=== PATIENT | female | born 1950 | race Caucasian/White ===

== ENCOUNTER 2016-08-22 13:07 | Inpatient (IN) | payer OTHER ==
[~2016-08-22] VITALS: Ht 165.1 cm; Wt 60.0 kg
[2016-08-22] MEDS ORDERED: LISI-662 PO (13:53)
[2016-08-22] MEDS ORDERED: ASPI-556 PO (13:53)
[2016-08-22] MEDS ORDERED: METO-323 PO (13:53)
[2016-08-22] MEDS ORDERED: METH10 PO (13:53)
[2016-08-22] MEDS ORDERED: ONDANSETRON HCL 4 MG/2 ML VIAL IVP ONE (14:00)
[2016-08-22] MEDS ORDERED: MORPHINE SULFATE 4 MG/ML SYRINGE IVP ONE (14:00)
[2016-08-22] MEDS ORDERED: ONDANSETRON HCL 4 MG/2 ML VIAL IM ONE (15:00)
[2016-08-22] MEDS ORDERED: DIAZEPAM 5 MG TABLET PO ONE (15:00)
[2016-08-22] MEDS ORDERED: MORPHINE SULFATE 4 MG/ML SYRINGE IM ONE (15:00)
[2016-08-22] MEDS ORDERED: HYDROmorphone 2 MG/ML SYRINGE IM ONE (16:45)
[2016-08-22] MEDS ORDERED: HYDROmorphone 2 MG/ML SYRINGE IVP ONE (16:45)
[2016-08-22] MEDS ORDERED: MIDAZOLAM HCL 2 MG/2 ML VIAL IM ONE (18:00)
[2016-08-22 18:09] LABS: HEMATOCRIT 41.9 % (36-46); HEMOGLOBIN 13.4 g/dL (12.0-16.0); MEAN CORPUSCULAR HEMOGLOBIN 26.8 pg (26.0-34.0); MEAN CORPUSCULAR VOLUME 84 fL (80-100); PLATELET COUNT (AUTO) 372 K/uL (150-450); RED BLOOD CELL COUNT(AUTO) 4.99 MIL/uL (4.00-5.20); WHITE BLOOD COUNT (AUTO) 28.9 K/uL (4.5-11.0)
[2016-08-22 18:51] LABS: CREATININE 1.97 mg/dL (0.60-1.30); POTASSIUM 4.1 mmol/L (3.5-5.1)
[2016-08-22 18:57] LABS: ALBUMIN 2.9 g/dL (3.4-5.0); BILIRUBIN,TOTAL 1.2 mg/dL (0.1-1.0); TOTAL PROTEIN, SERUM 8.1 g/dL (6.4-8.2)
[2016-08-22 19:03] LABS: BAND NEUTROPHILS % (MANUAL) 62 % (1-5); LYMPHOCYTES % (MANUAL) 5 % (22-44); METAMYELOCYTES % 2 % (0-0); TOTAL CELLS COUNTED 100
[2016-08-22] MEDS ORDERED: SODIUM CHLORIDE 0.9% 500 ML IV ONE (19:45)
[2016-08-22] MEDS ORDERED: CEFTAROLINE 600 MG/D5W 250 ML IV ONE (20:00)
[2016-08-22] MEDS ORDERED: ONDANSETRON HCL 4 MG/2 ML VIAL IVP PRN (20:45)
[2016-08-22] MEDS ORDERED: BISACODYL 10 MG RECTAL RECTAL SUPPOSITORY PR PRN (20:45)
[2016-08-22] MEDS ORDERED: ACETAMINOPHEN 325 MG TABLET PO PRN (20:45)
[2016-08-22] MEDS ORDERED: ALBUTEROL SULFATE 2.5 MG/0.5 ML NEB SOLUTION NEB PRN (20:45)
[2016-08-22 20:57] LABS: APPEARANCE,URINE CLOUDY (CLEAR); GLUCOSE, URINE (UA) NEGATIVE (NEGATIVE); KETONES,URINE 15 mg/dL (NEGATIVE); LEUKOCYTE ESTERASE ,URINE SMALL (NEGATIVE); OCCULT BLOOD,URINE NEGATIVE (NEGATIVE); PROTEIN,URINE TRACE (NEGATIVE)
[2016-08-22] MEDS: DOCUSATE SODIUM 100 MG CAPSULE PO SCH ×2 (21:00→23:20)
[2016-08-22 21:03] LABS: SQUAMOUS EPITHELIAL CELL,UR Moderate /LPF (None Seen)
[2016-08-22] MEDS: MORPHINE SULFATE 2 MG/ML SYRINGE IVP PRN (21:03)
[2016-08-22 21:05] LABS: CALCIUM OXALATE CRYSTALS,UR Few /LPF (None Seen)
[2016-08-22 22:02] VITALS: BP 146/78
[2016-08-22] MEDS ORDERED: VANCOMYCIN HCL 1.25 GM in DEXTROSE 5%-WATER 250 ML IV ONE (22:15)
[2016-08-22] MEDS: HEPARIN SODIUM,PORCINE 5,000 UNITS/ML VIAL SQ SCH ×2 (22:59→23:17)
[2016-08-22] MEDS: OxyCODONE HCL/ACETAMINOPHEN 5-325 MG TABLET PO PRN (23:02)
[2016-08-22 23:58] VITALS: BP 142/81
[2016-08-23] MEDS: SODIUM CHLORIDE 0.9% 1,000 ML IV SCH ×3 (01:33→20:23)
[2016-08-23] MEDS: PIPERACILLIN SODIUM/TAZOBACTAM 2.25 GM in DEXTROSE 5%-WATER 50 ML IV SCH ×5 (01:33→23:59)
[2016-08-23] MEDS: MORPHINE SULFATE 2 MG/ML SYRINGE IVP PRN ×3 (01:47→10:17)
[2016-08-23 04:44] VITALS: BP 126/58
[2016-08-23] MEDS: OxyCODONE HCL/ACETAMINOPHEN 5-325 MG TABLET PO PRN ×3 (06:06→21:47)
[2016-08-23] MEDS ORDERED: PNEUMOCOCCAL VACCINE POLYVALENT 0.5 ML VIAL [PPSV23] IM ONE (06:30)
[2016-08-23 07:39] LABS: ORIG DRAW (USER) MSIMS
[2016-08-23 07:43] LABS: CALCIUM, TOTAL 8.4 mg/dL (8.8-10.5); CREATININE 1.74 mg/dL (0.60-1.30); POTASSIUM 4.2 mmol/L (3.5-5.1)
[2016-08-23] MEDS ORDERED: VANCOMYCIN HCL 1 GM/D5% WATER 200 ML IV SCH (08:00)
[2016-08-23 08:10] LABS: BASOPHILS % (AUTO) 0.1 % (0.0-2.0); EOSINOPHILS % (AUTO) 0.2 % (1.0-6.0); HEMATOCRIT 37.7 % (36-46); HEMOGLOBIN 12.1 g/dL (12.0-16.0); LYMPHOCYTES % (AUTO) 5.4 % (22.0-44.0); MEAN CORPUSCULAR VOLUME 84 fL (80-100); MONOCYTES # (AUTO) 0.7 K/uL (0.1-1.0); MONOCYTES % (AUTO) 3.6 % (2.0-9.0); NEUTROPHILS # (AUTO) 16.3 K/uL (1.8-7.7); RED BLOOD CELL COUNT(AUTO) 4.47 MIL/uL (4.00-5.20); RED CELL DISTRIBUTION WIDTH 15.8 % (11.5-14.5)
[2016-08-23 08:11] VITALS: BP 138/70
[2016-08-23 08:14] LABS: NEUTROPHILS % (AUTO) 90.7 % (40.0-70.0)
[2016-08-23 08:15] LABS: PLATELET COUNT (AUTO) 251 K/uL (150-450)
[2016-08-23] MEDS: VANCOMYCIN HCL 750 MG in DEXTROSE 5%-WATER 150 ML IV SCH (08:24)
[2016-08-23] MEDS: PANTOPRAZOLE SODIUM 40 MG DR TABLET PO SCH (08:33)
[2016-08-23] MEDS: DOCUSATE SODIUM 100 MG CAPSULE PO SCH ×2 (08:33→20:21)
[2016-08-23] MEDS: HEPARIN SODIUM,PORCINE 5,000 UNITS/ML VIAL SQ SCH ×2 (08:34→20:20)
[2016-08-23 11:38] VITALS: BP 145/75
[2016-08-23 15:40] VITALS: BP 161/82
[2016-08-23] MEDS: METHADONE HCL 10 MG TABLET PO SCH (15:49)
[2016-08-23 19:58] VITALS: BP 199/97
[2016-08-23] MEDS: HYDROmorphone 2 MG/ML SYRINGE IVP PRN (20:20)
[2016-08-24] MEDS: HYDROmorphone 2 MG/ML SYRINGE IVP PRN ×4 (04:27→17:48)
[2016-08-24 04:50] VITALS: BP 168/67
[2016-08-24] MEDS: PIPERACILLIN SODIUM/TAZOBACTAM 2.25 GM in DEXTROSE 5%-WATER 50 ML IV SCH (06:57)
[2016-08-24 07:41] VITALS: BP 137/94
[2016-08-24 07:41] LABS: CALCIUM, TOTAL 8.5 mg/dL (8.8-10.5); CREATININE 1.03 mg/dL (0.60-1.30); POTASSIUM 3.6 mmol/L (3.5-5.1)
[2016-08-24] MEDS: PANTOPRAZOLE SODIUM 40 MG DR TABLET PO SCH (08:17)
[2016-08-24] MEDS: HEPARIN SODIUM,PORCINE 5,000 UNITS/ML VIAL SQ SCH ×2 (08:17→20:57)
[2016-08-24] MEDS: METHADONE HCL 10 MG TABLET PO SCH (08:17)
[2016-08-24] MEDS: DOCUSATE SODIUM 100 MG CAPSULE PO SCH ×2 (08:17→20:57)
[2016-08-24] MEDS: MORPHINE SULFATE 2 MG/ML SYRINGE IVP PRN ×2 (08:25→20:57)
[2016-08-24] MEDS: VANCOMYCIN HCL 750 MG in DEXTROSE 5%-WATER 150 ML IV SCH ×3 (08:26→20:57)
[2016-08-24 11:49] VITALS: BP 168/91
[2016-08-24] MEDS: PIPERACILLIN/TAZO 3.375 GM/D5W 50 ML IV SCH ×3 (13:38→23:26)
[2016-08-24] MEDS: SODIUM CHLORIDE 0.9% 1,000 ML IV SCH (13:40)
[2016-08-24 15:19] VITALS: BP 142/101
[2016-08-24 17:48] VITALS: BP 139/94
[2016-08-24 19:54] VITALS: BP 166/99
[2016-08-24] MEDS: OxyCODONE HCL/ACETAMINOPHEN 5-325 MG TABLET PO PRN (23:29)
[2016-08-25] VITALS (7 sets, daily range): BP systolic 149–186; BP diastolic 94–110
[2016-08-25] MEDS: LISINOPRIL 20 MG TABLET PO SCH ×2 (01:04→08:32)
[2016-08-25] MEDS: METOPROLOL SUCCINATE 25 MG ER TABLET PO SCH ×3 (01:04→20:13)
[2016-08-25] MEDS: MORPHINE SULFATE 2 MG/ML SYRINGE IVP PRN ×3 (03:14→20:18)
[2016-08-25] MEDS: SODIUM CHLORIDE 0.9% 1,000 ML IV SCH ×2 (05:59→21:26)
[2016-08-25] MEDS: PIPERACILLIN/TAZO 3.375 GM/D5W 50 ML IV SCH ×2 (05:59→12:43)
[2016-08-25] MEDS: METHADONE HCL 10 MG TABLET PO SCH (08:18)
[2016-08-25] MEDS: HYDROmorphone 2 MG/ML SYRINGE IVP PRN ×2 (08:21→23:44)
[2016-08-25] MEDS: PANTOPRAZOLE SODIUM 40 MG DR TABLET PO SCH (08:32)
[2016-08-25] MEDS: DOCUSATE SODIUM 100 MG CAPSULE PO SCH ×2 (08:33→20:12)
[2016-08-25] MEDS: HEPARIN SODIUM,PORCINE 5,000 UNITS/ML VIAL SQ SCH ×2 (08:34→20:13)
[2016-08-25] MEDS: VANCOMYCIN HCL 750 MG in DEXTROSE 5%-WATER 150 ML IV SCH (08:35)
[2016-08-25 09:17] LABS: ANION GAP 5 mmol/L (8-16); CALCIUM, TOTAL 8.6 mg/dL (8.8-10.5); CARBON DIOXIDE 34 mmol/L (22-29); CHLORIDE 101 mmol/L (98-107); CREATININE 0.71 mg/dL (0.60-1.30); GLOMERULAR FILTR. RATE CALC > 60 mL/min (>60); POTASSIUM 3.7 mmol/L (3.5-5.1); SODIUM SERUM 140 mmol/L (136-145); UREA NITROGEN, BLOOD 13 mg/dL (7-18)
[2016-08-25 12:01] LABS: BASOPHILS # (AUTO) 0.01 K/uL (0.00-0.20); BASOPHILS % (AUTO) 0.1 % (0.0-2.0); EOSINOPHILS # (AUTO) 0.07 K/uL (0.00-0.70); EOSINOPHILS % (AUTO) 0.67 % (1.0-6.0); HEMATOCRIT 37.7 % (36-46); HEMOGLOBIN 12.2 g/dL (12.0-16.0); LYMPHOCYTES # (AUTO) 1.1 K/uL (1.0-4.8); LYMPHOCYTES % (AUTO) 10.4 % (22.0-44.0); MEAN CORPUSCULAR HGB CONC 32.3 G/dL (31.0-37.0); MEAN CORPUSCULAR VOLUME 83 fL (80-100); MONOCYTES # (AUTO) 1.1 K/uL (0.1-1.0); MONOCYTES % (AUTO) 9.9 % (2.0-9.0); NEUTROPHILS # (AUTO) 8.6 K/uL (1.8-7.7); NEUTROPHILS % (AUTO) 78.9 % (40.0-70.0); PLATELET COUNT (AUTO) 220 K/uL (150-450); RED BLOOD CELL COUNT(AUTO) 4.52 MIL/uL (4.00-5.20); RED CELL DISTRIBUTION WIDTH 16.4 % (11.5-14.5); WHITE BLOOD COUNT (AUTO) 10.9 K/uL (4.5-11.0)
[2016-08-25] MEDS: CloNIDine HCL 0.1 MG TABLET PO PRN ×2 (12:47→23:45)
[2016-08-25] MEDS: CefTRIAXone 1 GM/DEXTROSE 50 ML IV SCH (17:52)
[2016-08-26 03:30] VITALS: BP 192/88
[2016-08-26] MEDS: SODIUM CHLORIDE 0.9% 1,000 ML IV SCH ×2 (04:45→18:05)
[2016-08-26 06:06] LABS: BASOPHILS % (AUTO) 0.1 % (0.0-2.0); EOSINOPHILS % (AUTO) 0.8 % (1.0-6.0); HEMATOCRIT 39.5 % (36-46); HEMOGLOBIN 12.6 g/dL (12.0-16.0); LYMPHOCYTES # (AUTO) 1.6 K/uL (1.0-4.8); MEAN CORPUSCULAR HEMOGLOBIN 26.7 pg (26.0-34.0); MEAN CORPUSCULAR VOLUME 83 fL (80-100); MONOCYTES # (AUTO) 1.2 K/uL (0.1-1.0); MONOCYTES % (AUTO) 10.7 % (2.0-9.0); NEUTROPHILS # (AUTO) 8.5 K/uL (1.8-7.7); NEUTROPHILS % (AUTO) 74.4 % (40.0-70.0); PLATELET COUNT (AUTO) 235 K/uL (150-450); RED BLOOD CELL COUNT(AUTO) 4.73 MIL/uL (4.00-5.20); RED CELL DISTRIBUTION WIDTH 15.3 % (11.5-14.5); WHITE BLOOD COUNT (AUTO) 11.4 K/uL (4.5-11.0)
[2016-08-26] MEDS: MORPHINE SULFATE 2 MG/ML SYRINGE IVP PRN (06:28)
[2016-08-26] MEDS: CloNIDine HCL 0.1 MG TABLET PO PRN ×2 (06:28→15:33)
[2016-08-26 07:27] VITALS: BP 152/97
[2016-08-26] MEDS: HYDROmorphone 2 MG/ML SYRINGE IVP PRN ×3 (08:20→18:11)
[2016-08-26] MEDS: DOCUSATE SODIUM 100 MG CAPSULE PO SCH ×2 (08:20→20:34)
[2016-08-26] MEDS: HEPARIN SODIUM,PORCINE 5,000 UNITS/ML VIAL SQ SCH ×2 (08:20→20:34)
[2016-08-26] MEDS: LISINOPRIL 20 MG TABLET PO SCH (08:21)
[2016-08-26] MEDS: METOPROLOL SUCCINATE 25 MG ER TABLET PO SCH (08:21)
[2016-08-26] MEDS: METHADONE HCL 10 MG TABLET PO SCH (08:21)
[2016-08-26] MEDS: PANTOPRAZOLE SODIUM 40 MG DR TABLET PO SCH (08:22)
[2016-08-26] MEDS ORDERED: GADOBUTROL 1 MMOL/ML 10 ML VIAL IVP ONE (08:51)
[2016-08-26 10:58] LABS: ERYTHROCYTE SEDIMENTATION RATE 75 MM/HR (0-20)
[2016-08-26 15:18] VITALS: BP 162/98
[2016-08-26] MEDS: OxyCODONE HCL/ACETAMINOPHEN 5-325 MG TABLET PO PRN ×2 (15:33→21:37)
[2016-08-26] MEDS: CefTRIAXone 1 GM/DEXTROSE 50 ML IV SCH (18:10)
[2016-08-26 20:34] VITALS: BP 130/97
[2016-08-27 00:06] VITALS: BP 188/89
[2016-08-27] MEDS: CloNIDine HCL 0.1 MG TABLET PO PRN ×2 (00:12→20:17)
[2016-08-27] MEDS: HYDROmorphone 2 MG/ML SYRINGE IVP PRN ×2 (00:12→22:42)
[2016-08-27 05:08] VITALS: BP 160/88
[2016-08-27] MEDS: OxyCODONE HCL/ACETAMINOPHEN 5-325 MG TABLET PO PRN (05:09)
[2016-08-27 07:16] VITALS: BP 112/80
[2016-08-27 07:51] LABS: BASOPHILS % (AUTO) 0.1 % (0.0-2.0); EOSINOPHILS % (AUTO) 2.7 % (1.0-6.0); HEMATOCRIT 40.5 % (36-46); HEMOGLOBIN 13.2 g/dL (12.0-16.0); LYMPHOCYTES # (AUTO) 2.1 K/uL (1.0-4.8); LYMPHOCYTES % (AUTO) 19.2 % (22.0-44.0); MEAN CORPUSCULAR HEMOGLOBIN 26.4 pg (26.0-34.0); MEAN CORPUSCULAR HGB CONC 32.5 G/dL (31.0-37.0); MEAN CORPUSCULAR VOLUME 81 fL (80-100); MONOCYTES # (AUTO) 1.3 K/uL (0.1-1.0); MONOCYTES % (AUTO) 12.2 % (2.0-9.0); NEUTROPHILS # (AUTO) 7.1 K/uL (1.8-7.7); NEUTROPHILS % (AUTO) 65.8 % (40.0-70.0); PLATELET COUNT (AUTO) 258 K/uL (150-450); RED BLOOD CELL COUNT(AUTO) 4.98 MIL/uL (4.00-5.20); RED CELL DISTRIBUTION WIDTH 15.4 % (11.5-14.5); WHITE BLOOD COUNT (AUTO) 10.8 K/uL (4.5-11.0)
[2016-08-27] MEDS: METHADONE HCL 10 MG TABLET PO SCH (08:38)
[2016-08-27] MEDS: PANTOPRAZOLE SODIUM 40 MG DR TABLET PO SCH (08:38)
[2016-08-27] MEDS: METOPROLOL SUCCINATE 25 MG ER TABLET PO SCH (08:38)
[2016-08-27] MEDS: LISINOPRIL 20 MG TABLET PO SCH (08:38)
[2016-08-27] MEDS: MORPHINE SULFATE 2 MG/ML SYRINGE IVP PRN ×3 (08:38→18:25)
[2016-08-27] MEDS: DOCUSATE SODIUM 100 MG CAPSULE PO SCH ×2 (08:38→20:17)
[2016-08-27] MEDS: HEPARIN SODIUM,PORCINE 5,000 UNITS/ML VIAL SQ SCH ×2 (08:39→20:18)
[2016-08-27] MEDS ORDERED: 0.9% SODIUM CHLORIDE 10 ML SYRINGE IVP PRN (11:15)
[2016-08-27 11:45] VITALS: BP 155/69
[2016-08-27] MEDS: SODIUM CHLORIDE 0.9% 1,000 ML IV SCH (12:32)
[2016-08-27] MEDS: CefTRIAXone 1 GM/DEXTROSE 50 ML IV SCH (14:30)
[2016-08-27 15:31] VITALS: BP 148/98
[2016-08-27 20:07] VITALS: BP 162/98
[2016-08-28] VITALS (7 sets, daily range): BP systolic 138–181; BP diastolic 73–92
[2016-08-28] MEDS: MORPHINE SULFATE 2 MG/ML SYRINGE IVP PRN (02:40)
[2016-08-28] MEDS: CloNIDine HCL 0.1 MG TABLET PO PRN (04:14)
[2016-08-28] MEDS: METHADONE HCL 10 MG TABLET PO SCH (08:23)
[2016-08-28] MEDS: DOCUSATE SODIUM 100 MG CAPSULE PO SCH ×2 (08:23→21:05)
[2016-08-28] MEDS: HEPARIN SODIUM,PORCINE 5,000 UNITS/ML VIAL SQ SCH ×2 (08:24→21:06)
[2016-08-28] MEDS: LISINOPRIL 20 MG TABLET PO SCH (08:24)
[2016-08-28] MEDS: PANTOPRAZOLE SODIUM 40 MG DR TABLET PO SCH (08:24)
[2016-08-28] MEDS: METOPROLOL SUCCINATE 25 MG ER TABLET PO SCH (08:24)
[2016-08-28] MEDS: SODIUM CHLORIDE 0.9% 1,000 ML IV SCH (08:30)
[2016-08-28] MEDS: HYDROmorphone 2 MG/ML SYRINGE IVP PRN (08:30)
[2016-08-28] MEDS: OxyCODONE HCL/ACETAMINOPHEN 5-325 MG TABLET PO PRN ×3 (10:14→21:57)
[2016-08-28] MEDS: CefTRIAXone 1 GM/DEXTROSE 50 ML IV SCH (17:54)
[2016-08-29] MEDS: CloNIDine HCL 0.1 MG TABLET PO PRN (00:15)
[2016-08-29] MEDS: OxyCODONE HCL/ACETAMINOPHEN 5-325 MG TABLET PO PRN ×3 (06:06→12:56)
[2016-08-29 06:18] VITALS: BP 153/73
[2016-08-29 07:46] VITALS: BP 159/88
[2016-08-29] MEDS: HEPARIN SODIUM,PORCINE 5,000 UNITS/ML VIAL SQ SCH (09:00)
[2016-08-29] MEDS ORDERED: LISINOPRIL 20 MG TABLET PO SCH (09:00)
[2016-08-29] MEDS: PANTOPRAZOLE SODIUM 40 MG DR TABLET PO SCH (09:15)
[2016-08-29] MEDS: METOPROLOL SUCCINATE 25 MG ER TABLET PO SCH (09:15)
[2016-08-29] MEDS: METHADONE HCL 10 MG TABLET PO SCH (09:16)
[2016-08-29] MEDS: DOCUSATE SODIUM 100 MG CAPSULE PO SCH (09:16)
[2016-08-29] MEDS ORDERED: AmLODIPine BESYLATE 10 MG TABLET PO SCH (10:00)
[2016-08-29 11:34] VITALS: BP 155/94
[2016-08-29 15:31] VITALS: BP 170/87
== END 2016-08-29 16:50 | disposition left against medical advice (07) | DRG 720 ==
LOC: EMS 13:10 → 6N 20:00
PROVIDERS: ADMIT Internal Medicine; ATTEND Internal Medicine
DX: A41.2 Sepsis due to unspecified staphylococcus (principal); E43 Unspecified severe protein-calorie malnutrition; N17.9 Acute kidney failure, unspecified; L03.115 Cellulitis of right lower limb; B95.1 Streptococcus, group B, as the cause of diseases classified elsewhere; F11.10 Opioid abuse, uncomplicated; F17.200 Nicotine dependence, unspecified, uncomplicated; I10 Essential (primary) hypertension; J44.9 Chronic obstructive pulmonary disease, unspecified; Z75.1 Person awaiting admission to adequate facility elsewhere; Z79.899 Other long term (current) drug therapy; Z68.22 Body mass index [BMI] 22.0-22.9, adult; Z28.21 Immunization not carried out because of patient refusal
CPT/HCPCS: 51702; 72131; 72158; 85651; 86140; 87040; 87086; 87147; 93005; 93306; 96365; 96372; 97116; 97161; 97530; 99285; A9585; J0696; J0712; J1170; J1644; J2250; J2270; J2405; J2543; J3370; J7030; J7040; J7060